=== PATIENT | female | born 1990 | race Caucasian/White ===

== ENCOUNTER 2016-10-25 08:37 | Inpatient (IN) | payer OTHER ==
[2016-10-25] MEDS ORDERED: PENICILLIN G POTASSIUM 5,000,000 UNIT in DEXTROSE 5%-WATER 100 ML IV ONE (08:39)
[2016-10-25] MEDS ORDERED: RINGERS SOLUTION,LACTATED 1,000 ML IV ONE (08:39)
[2016-10-25] MEDS ORDERED: PENICILLIN G-K 5 MILLION UNIT VIAL ONE ×2 (09:15→12:53)
[2016-10-25] MEDS: RINGERS SOLUTION,LACTATED 1,000 ML IV PRN ×2 (09:28→19:35)
[2016-10-25 09:29] LABS: APPEARANCE,URINE CLEAR; BILIRUBIN,URINE NEGATIVE (NEGATIVE); GLUCOSE, URINE NEGATIVE (NEGATIVE); KETONES,URINE NEGATIVE (NEGATIVE); LEUKOCYTE ESTERASE,URINE NEGATIVE (NEGATIVE); NITRITE,URINE NEGATIVE (NEGATIVE); PROTEIN,URINE NEGATIVE (NEGATIVE); URINE SPECIFIC GRAVITY 1.008; UROBILINOGEN,URINE NEGATIVE mg/dL (<2.0)
[2016-10-25 09:38] LABS: ABSOLUTE EOSINOPHILS # (AUTO) 0.1 10^3/uL (0.0-0.6); ABSOLUTE LYMPHOCYTES (AUTO) 1.8 10^3/uL (0.5-4.7); ABSOLUTE MONOCYTES (AUTO) 0.7 10^3/uL (0.1-1.4); ABSOLUTE NEUT (AUTO) 6.8 10^3/uL (1.7-8.2); BASOPHILS % (AUTO) 0.5 % (0-2); EOSINOPHILS % (AUTO) 0.5 % (0-6); HEMATOCRIT 32.7 % (36.0-47.0); HEMOGLOBIN 11.4 g/dL (12.0-15.5); HGB HCT DIFFERENCE 1.5; LYMPHOCYTES % (AUTO) 18.9 % (13-45); MEAN CORPUSCULAR HEMOGLOBIN 29.8 pg (27.0-33.4); MEAN CORPUSCULAR HGB CONC 34.8 g/dL (32.0-36.0); MEAN CORPUSCULAR VOLUME 86 fl (80-97); MONOCYTES % (AUTO) 7.6 % (3-13); RED BLOOD COUNT 3.83 10^6/uL (3.72-5.28); RED CELL DISTRIBUTION WIDTH 14.3 % (11.5-14.0); SEGMENTED NEUTROPHILS % (AUTO) 72.5 % (42-78); WHITE BLOOD COUNT 9.4 10^3/uL (4.0-10.5)
[2016-10-25 09:49] LABS: ALANINE AMINOTRANSFERASE 23 U/L (9-52); ALBUMIN 3.5 g/dL (3.5-5.0); ALKALINE PHOSPHATASE 161 U/L (38-126); ANION GAP 7 (5-19); ASPARTATE AMINO TRANSFERASE 17 U/L (14-36); BILIRUBIN,TOTAL 0.5 mg/dL (0.2-1.3); BLOOD UREA NITROGEN 9 mg/dL (7-20); CARBON DIOXIDE 22 mmol/L (22-30); CHLORIDE 105 mmol/L (98-107); CREATININE RESULT 0.51 mg/dL (0.52-1.25); GLUCOSE 76 mg/dL (75-110); LDH 449 U/L (313-618); SODIUM 134.3 mmol/L (137-145); TOTAL PROTEIN 5.8 g/dL (6.3-8.2)
[2016-10-25 09:57] LABS: URINE BARBITURATES SCREEN NEGATIVE; URINE METHADONE SCREEN NEGATIVE; URINE OPIATES LOW NEGATIVE; URINE PHENCYCLIDINE SCREEN NEGATIVE
--- NOTE | 2016-10-25 10:01 | L&D Flow Sheet ---
LD Flowsheet Datetime Report Generated by CPN: 10/25/2016 10:00 Datetime: 10/25/2016 09:55 Vital Signs NBP Sys/Candy/Mean (mmHg): 114 (QS system process) : 70 (QS system process) : 87 (QS system process) Pulse: 61 (QS system process) Datetime: 10/25/2016 09:41 Vital Signs NBP Sys/Candy/Mean (mmHg): 115 (QS system process) : 75 (QS system process) : 91 (QS system process) Pulse: 60 (QS system process) Datetime: 10/25/2016 09:25 Procedures: Labs Drawn (Ny Gonzalez, RN) Datetime: 10/25/2016 09:21 Vital Signs NBP Sys/Candy/Mean (mmHg): 118 (QS system process) : 83 (QS system process) : 94 (QS system process) Pulse: 68 (QS system process) Datetime: 10/25/2016 09:20 Medications Antibiotics: Penicillin IV (Units) @ 5million (Ny Gonzalez, RN) Datetime: 10/25/2016 09:04 Uterine Activity Frequency (min): irreg (Ny Gonzalez, RN) Pain Pain Scale: 0 (Ny Gonzalez, RN) Pain Presence: None/Denies (Nybennett Gonzalez, RN) Pain Type: N/A (Ny Gonzalez, RN) Vaginal Exam Vaginal Bleeding: None (Ny Gonzalez, RN) Maternal Assessment Level of Consciousness: Fully Conscious (Ny Gonzalez, RN) DTR's/Clonus: DTRs 2+; No Clonus (Ny Gonzalez, RN) Headache: Denies (Ny Gonzalez, RN) Breath Sounds, Left: Clear and Equal (Ny Gonzalez, RN) Breath Sounds, Right: Clear and Equal (Ny Gonzalez, RN) Nausea/Vomiting: Denies (Ny Gonzalez, RN) RUQ Epigastric Pain: Denies (Ny Gonzalez, RN) Teaching Instructional Method: Verbal; Patient Instructed; Family/Support Person Instructed; Verbalized Understanding (Ny Gonzalez RN) Plan of Care: Plan of Care Discussed; Vaginal Delivery; Induction (Ny Gonzalez RN) Unit Routine: [place] to Room; Call [place]; Bed; Consents Signed; Handwashing; Monitoring; Bathroom Privileges (Ny Gonzalez RN) Datetime: 10/25/2016 09:02 Patient Care IV/Blood Work: IV Started; IV Bolus Started (Ny Gonzalez RN)
--- NOTE | 2016-10-25 12:01 | L&D Flow Sheet ---
LD Flowsheet Datetime Report Generated by CPN: 10/25/2016 12:00 Datetime: 10/25/2016 10:21 Monitor Mode: External (Ny Gonzalez RN) Frequency (min): 3-5 (Ny Gonzalez RN) Quality: Mild/Moderate (Ny Gonzalez RN) Duration (sec): 50-80 (Ny Gonzalez RN) Resting Tone (Palpate): Relaxed (Ny Gonzalez RN) Monitor Mode: External US (Ny Gonzalez RN) FHR Baseline Rate : 145 (Ny Gonzalez RN) Variability: Moderate 6-25 bpm (Ny Gonzalez RN) Accelerations: 15X15 (Ny Gonzalez RN) Decelerations: None (Ny Gonzalez RN) Communication Comments: Monitors removed. IV saline locked for pt to walk around per A. Emmel CNM (Ny Gonzalez RN) Datetime: 10/25/2016 10:10 NBP Sys/Candy/Mean (mmHg): 119 (QS system process) : 76 (QS system process) : 95 (QS system process) Pulse: 63 (QS system process) Datetime: 10/25/2016 10:00 Monitor Mode: External (Ny Gonzalez RN) Frequency (min): 3-5 (Ny Gonzalez RN) Quality: Mild/Moderate (Ny Gonzalez RN) Duration (sec): 50-80 (Ny Gonzalez RN) Resting Tone (Palpate): Relaxed (Ny Gonzalez RN) Monitor Mode: External US (Ny Gonzalez RN) FHR Baseline Rate : 145 (Ny Gonzalez RN) Variability: Moderate 6-25 bpm (Ny Gonzalez RN) Accelerations: 15X15 (Ny Gonzalez RN) Decelerations: None (Ny Gonzalez RN)
[2016-10-25] MEDS ORDERED: PENICILLIN G POTASSIUM 2,500,000 UNIT in DEXTROSE 5%-WATER 50 ML IV SCH (12:40)
--- NOTE | 2016-10-25 14:01 | L&D Flow Sheet ---
LD Flowsheet Datetime Report Generated by CPN: 10/25/2016 14:00 Datetime: 10/25/2016 13:59 NBP Sys/Candy/Mean (mmHg): 117 (QS system process) : 66 (QS system process) : 87 (QS system process) Pulse: 64 (QS system process) Datetime: 10/25/2016 13:44 NBP Sys/Candy/Mean (mmHg): 114 (QS system process) : 63 (QS system process) : 81 (QS system process) Pulse: 64 (QS system process) Datetime: 10/25/2016 13:29 NBP Sys/Candy/Mean (mmHg): 118 (QS system process) : 74 (QS system process) : 92 (QS system process) Pulse: 61 (QS system process) Datetime: 10/25/2016 13:14 NBP Sys/Candy/Mean (mmHg): 119 (QS system process) : 70 (QS system process) : 89 (QS system process) Pulse: 60 (QS system process) Datetime: 10/25/2016 13:10 Antibiotics: Penicillin IV (Units) @ 2.5 million (Ny Gonzalez RN) Datetime: 10/25/2016 12:59 Dilatation (cm): 5.0 (Ny Gonzalez RN) Effacement (%): 80 (Ny Gonzalez RN) Station: -1 (Ny Gonzalez RN) Exam by: Aleshia Guerrero CNM (Ny Gonzalez, RN) Membrane Status: Ruptured (Ny Gonzalez RN) Membranes Rupture Method: Artificial (Ny Gonzalez, RN) Amniotic Fluid Color: Clear (Ny Gonzalez, RN) Amniotic Fluid Amount: None (Ny Gonzalez, RN) Amniotic Fluid Odor: Normal (Ny Gonzalez, RN) Communication Comments: Aleshia Guerrero CNM at bedside (Ny Gonzalez, RN)
[2016-10-25] MEDS ORDERED: OXYTOCIN/NORMAL SALINE 20 UNIT/1,000 ML RTUINJ ONE (15:06)
[2016-10-25] MEDS ORDERED: MISOPROSTOL 0.2 MG TABLET ONE (15:06)
[2016-10-25] MEDS ORDERED: LIDOCAINE 1% INJ-PF (10 MG/ML) 30 ML SDV ONE (15:06)
--- NOTE | 2016-10-25 16:01 | L&D Flow Sheet ---
LD Flowsheet Datetime Report Generated by CPN: 10/25/2016 16:00 Datetime: 10/25/2016 15:59 NBP Sys/Candy/Mean (mmHg): 114 (QS system process) : 52 (QS system process) : 73 (QS system process) Pulse: 60 (QS system process) Datetime: 10/25/2016 15:46 NBP Sys/Candy/Mean (mmHg): 130 (QS system process) : 87 (QS system process) : 102 (QS system process) Pulse: 80 (QS system process) Datetime: 10/25/2016 15:13 Dilatation (cm): 10.0 (Ny Gonzalez RN) Effacement (%): 100 (Ny Gonzalez RN) Station: 1 (Ny Gonzalez RN) Exam by: A. Emmel CNM (Ny Gonzalez RN) Datetime: 10/25/2016 15:08 I/O Interventions: Up to BR (Ny Gonzalez, RN) Datetime: 10/25/2016 15:06 Communication Comments: A. Emmel CNM at bedside (Ny Gonzalez, RN) Datetime: 10/25/2016 15:00 NBP Sys/Candy/Mean (mmHg): 118 (QS system process) : 66 (QS system process) : 86 (QS system process) Pulse: 69 (QS system process) Datetime: 10/25/2016 14:45 NBP Sys/Candy/Mean (mmHg): 122 (QS system process) : 62 (QS system process) : 86 (QS system process) Pulse: 65 (QS system process) Datetime: 10/25/2016 14:30 Monitor Mode: External (Ny Gonzalez, RN) Frequency (min): 3-7 (Ny Gonzalez, RN) Quality: Mild/Moderate (Nybennett Gonzalez, RN) Duration (sec): 50-80 (Nybennett Gonzalez, RN) Duration Criteria: Less than Two 120 Second Contractions (Ny Gonzalez, RN) Pattern: Normal: <= 5 Contractions in 10 Minutes (Nybennett Gonzalez, RN) Resting Tone (Palpate): Relaxed (Nybennett Gonzalez, RN) Monitor Mode: External US (Ny Gonzalez, RN) FHR Baseline Rate : 135 (Nybennett Gonzalez, RN) Variability: Moderate 6-25 bpm (Nybennett Gonzalez, RN) Accelerations: 15X15 (Nybennett Gonzalez, RN) Decelerations: None (Nybennett Gonzalez, RN) Datetime: 10/25/2016 14:29 NBP Sys/Candy/Mean (mmHg): 115 (QS system process) : 65 (QS system process) : 84 (QS system process) Pulse: 66 (QS system process) Datetime: 10/25/2016 14:14 NBP Sys/Candy/Mean (mmHg): 113 (QS system process) : 64 (QS system process) : 83 (QS system process) Pulse: 60 (QS system process) Datetime: 10/25/2016 14:10 Monitor Interventions for UA: [address] Adjusted (Ny Gonzalez RN) Datetime: 10/25/2016 14:00 Monitor Mode: External (Ny Gonzalez RN) Frequency (min): 3-5 (Ny Gonzalez RN) Quality: Mild/Moderate (Ny Gonzalez RN) Duration (sec): 50-80 (Ny Gonzalez RN) Resting Tone (Palpate): Relaxed (Ny Gonzalez RN) Monitor Mode: External US (Ny Gonzalez RN) FHR Baseline Rate : 135 (Ny Gonzalez RN) Variability: Moderate 6-25 bpm (Ny Gonzalez RN) Accelerations: 15X15 (Ny Gonzalez RN) Decelerations: None (Ny Gonzalez RN)
--- NOTE | 2016-10-25 17:04 | Admission Physical ---
Datetime Report Generated by CPN: 10/25/2016 17:04 CURRENT ADMISSION Chief Complaint: Signs/Symptoms Gestational HTN Admit Plan: Admit to Unit; Initiate Labor Induction Protocol ALLERGIES Medication Allergies: No Medication Allergies: No Known Allergies (10/25/2016) Latex: No Latex Allergies OBSTETRICAL HISTORY EDC: 10/20/2016 00:00 : 2 Para: 1 Gestational Diabetes: Yes Rh Sensitization: No Incompetent Cervix: No RONNIE: No Infertility: No ART Treatment: No Uterine Anomaly: No IUGR: No Hx Previous C/S: No Macrosomia: No Hx Loss/Stillborn: No PIH: No Hx : No Placenta Previa/Abruption: No Depression/PP Depression: No PTL/PROM: No Post Hemorrhage: No Current Procedures: Ultrasound; NST Obstetrical History Comments: G1: 02/2014, GDM G2: current SEE RECORDS Alcohol: No Marijuana : No Cocaine: No Other Illicit Drugs: No Cigarettes: Never Smoker. [id number] MEDICAL HISTORY Diabetes: Yes Diabetes Type: Gestational Diabetes Blood Transfusion: No Pulmonary Disease (Asthma, TB): No Breast Disease: No Hypertension: No Placement Manager Surgery: No Heart Disease: No Hosp/Surgery: Yes Autoimmune Disorder: No Anesthetic Complications: No Kidney Disease: No Abnormal Pap Smear: No Neuro/Epilepsy: No Psychiatric Disorders: No Other Medical Diseases: No Hepatitis/Liver Disease: No Significant Family History: No Varicosities/Phlebitis: No Trauma/Violence : No Thyroid Dysfunction: No Medical History Comments: GDM with first INFECTIOUS HISTORY Gonorrhea: No Genital Herpes: No Chlamydia: No Tuberculosis: No Syphilis: No Hepatitis: No HIV/AIDS Exposure: No Rash or Viral Illness: No HPV: No PHYSICAL EXAM General: Normal HEENT: Normal Neurologic: Normal Thyroid: Normal Heart: Normal Lungs: Normal Breast: Normal Back: Normal Abdomen: Normal Genitourinary Exam: Normal Extremities: Normal DTRs: Normal Pelvic Type: Adequate Vital Signs: Reviewed MEMBRANES Membranes: Intact FETUS A EGA: 40.5 Monitoring: External US Decelerations: None Admit Comment: 26 yo admitted for gestational hypertension EGA 40.5 EDC 10/20/ history unremarkable GBS positive abdomen nontender denies visual symptoms gbs prophylaxis irregular contractions plan to rupture at 1300 anticipate anticipate FHTs PLANS FOR LABOR AND DELIVERY Labor and Delivery: None Pain Management: None Feeding Preference: Breast Benefit of Breast Feed Discussed: Yes Circumcision: N/A INFORMED CONSENT Assignment: Irene Anthony MD Signature: with User ID: Jose : with User ID: [email or web address]
[2016-10-25] MEDS ORDERED: BENZOCAINE/MENTHOL AEROSOL SPRAY 56 ML TOP PRN (17:11)
[2016-10-25] MEDS ORDERED: DIBUCAINE 1% OINTMENT 28 GM TP PRN (17:11)
[2016-10-25] MEDS ORDERED: MEASLES,MUMPS&RUBELLA VACC/PF 0.5 ML VIAL SUBCUT PRN (17:11)
[2016-10-25] MEDS ORDERED: DIPH/PERTUSS(ACELL)/TETANUS VAC/PF 0.5 ML SYR (>=10YO) IM PRN (17:11)
[2016-10-25] MEDS ORDERED: OXYTOCIN/NORMAL SALINE 1,000 ML IV PRN (17:11)
[2016-10-25] MEDS ORDERED: ZOLPIDEM TARTRATE 5 MG TABLET PO PRN (17:11)
[2016-10-25] MEDS ORDERED: ACETAMINOPHEN WITH CODEINE #3 TABLET PO PRN (17:11)
--- NOTE | 2016-10-25 17:17 | Delivery Summary ---
Del Sum A-C Datetime Report Generated by CPN: 10/25/2016 17:17 ADMISSION DATA Chief Complaint: Signs/Symptoms Gestational HTN Admission Impression: Term, Intrauterine Admit Provider Comments: 26 yo admitted for gestational hypertension EGA 40.5 EDC 10/20/16 history unremarkable GBS positive abdomen nontender denies visual symptoms gbs prophylaxis irregular contractions plan to rupture at 1300 anticipate anticipate FHTs DELIVERY PERSONNEL Delivery Doctor:: Meenakshi Guerrero CNM Nurse Tower Foreman Certified:: Meenakshi Guerrero CNM Labor and Delivery Nurse:: Ny Gonzalez RN MATERNAL INFORMATION Delivery Anesthesia: None Medications After Delivery: Pitocin Bolus-Please Comment; Pitocin Drip 20 Units/1000ml NSS Estimated Blood Loss (ml): 300 Maternal Complications: None Provider Comments: delivery of viable female WILLIS apgars 9/9 bulb suctioned on perineum infant to abdomen tactile stimulation elicits spont cry cord clamped and cut by FOB placenta intact- blake large clots expelled fundus firming with massage [id number] mod lochia 2nd degree vaginal laceration repaired under 1% lidocaine EBL 300 cc bonding well with hemostasis achieved LABOR SUMMARY EDC: 10/20/2016 00:00 No. Babies in Womb: 1 Attempted: No Labor Anesthesia: None LABOR INFORMATION Reason for Induction: Gestational Hypertension Onset of Labor: 10/25/2016 12:00 Complete Dilatation: 10/25/2016 15:13 Oxytocin: N/A Group B Beta Strep: positive Antibiotics # of Doses: 2 Antibiotics Time of Last Dose: 1310 Name of Antibiotic Given: PCN Steroids Given: None Reason Steroids Not Administered: Not Applicable MEMBRANES Membranes Rupture Method: Artificial Rupture of Membranes: 10/25/2016 12:59 Length of Rupture (hr): 2.42 Amniotic Fluid Color: Clear Amniotic Fluid Amount: None Amniotic Fluid Odor: Normal STAGES OF LABOR Stage 1 hr: 3 Stage 1 min: 13 Stage 2 hr: 0 Stage 2 min: 11 Stage 3 hr: 0 Stage 3 min: 8 Total Time in Labor hr: 3 Total Time in Labor min: 32 VAGINAL DELIVERY Episiotomy: None Laceration Extension: Second Degree Laceration Type: Vaginal Laceration Repair: Yes Laceration Repair Note: 2nd degree vaginal laceration repaired under 1%lidocaine pt tolerated well 2.0 chromic gut CSECTION DELIVERY Primary Indication: N/A Secondary Indication: N/A CSection Incidence: N/A Labor: N/A Elective: N/A CSection Incision: N/A BABY A INFORMATION Infant Delivery Date/Time: 10/25/2016 15:24 Method of Delivery: Vaginal Born in Route : No : N/A Forceps: N/A Vacuum Extraction: N/A Shoulder Dystocia : No PRESENTATION/POSITION BABY A Presentation: Cephalic Cephalic Presentation: Vertex Vertex Position: Right Occipital Anterior Breech Presentation: N/A PLACENTA INFORMATION BABY A Placenta Delivery Time : 10/25/2016 15:32 Placenta Method of Delivery: Spontaneous Placenta Status: Delivered SCORES BABY A Heart Rate 1 min: >100 bpm Resp Effort 1 min: Good Cry Reflex Irritability 1 min: Cough or Sneeze or Pulls Away Muscle Tone 1 min: Active Motion Color 1 min: Body [place], Extremities Blue Resuscitation Effort 1 min: Tactile Stimulation SCORE 1 MIN: 9 Heart Rate 5 min: >100 bpm Resp Effort 5 min: Good Cry Reflex Irritability 5 min: Cough or Sneeze or Pulls Away Muscle Tone 5 min: Active Motion Color 5 min: Body [place], Extremities Blue Resuscitation Effort 5 min: N/A SCORE 5 MIN: 9 INFANT INFORMATION BABY A Gestational Age at Delivery: 40.5 Gestational Status: Full Term- 39- 40.6 Weeks Infant Outcome : Liveborn Infant Condition : Stable Infant Sex: Female WEIGHT/LENGTH BABY A Infant Birthweight (gm): 3715 Infant Weight (lb): 8 Infant Weight (oz): 3 Length (in): 21.00 Infant Length (cm): 53.34 CORD INFORMATION BABY A No. Cord Vessels: 3 Nuchal Cord : N/A Cord Blood Taken: Yes-For Storage (Mom's Blood type +) Infant Suction: None ASSESSMENT BABY A Complications: None Physical Findings at Delivery: Within Normal Limits Respirations: Appears Normal Skin to Skin: Yes Mixed Livestock Farmer/ALS Called : No Infant Care By: A. Gonzalez RN Transferred To: Remains with Mother BABY B INFORMATION : N/A SIGNATURES Assignment: Irene Anthony MD Signature: with User ID: [email or web address] : with User ID: [email or web address]
--- NOTE | 2016-10-25 19:01 | L&D Flow Sheet ---
LD Flowsheet Datetime Report Generated by CPN: 10/25/2016 19:00 Datetime: 10/25/2016 16:50 Vital Signs Stage of : Recovery (Ny Gonzalez, RN) Datetime: 10/25/2016 16:44 Vital Signs Stage of : Recovery (Nybennett Gonzalez, RN) NBP Sys/Candy/Mean (mmHg): 105 (QS system process) : 66 (QS system process) : 81 (QS system process) Pulse: 70 (QS system process) Pain Pain Scale: 0 (Nybennett Gonzalez, RN) Pain Presence: None/Denies (Nybennett Gonzalez, RN) Pain Type: N/A (Nybennett Gonzalez, RN) Datetime: 10/25/2016 16:29 Vital Signs Stage of : Recovery (Ny Gonzalez, RN) NBP Sys/Candy/Mean (mmHg): 137 (QS system process) : 60 (QS system process) : 87 (QS system process) Pulse: 67 (QS system process) Pain Pain Scale: 0 (Ny Gonzalez, RN) Pain Presence: None/Denies (Ny Gonzalez, RN) Pain Type: N/A (Ny Gonzalez, RN) Datetime: 10/25/2016 16:14 Vital Signs Stage of : Recovery (Ny Gonzalez, RN) NBP Sys/Candy/Mean (mmHg): 101 (QS system process) : 61 (QS system process) : 75 (QS system process) Pulse: 65 (QS system process) Pain Pain Scale: 0 (Ny Gonzalez, RN) Pain Presence: None/Denies (Ny Gonzalez, RN) Pain Type: N/A (Ny Gonzalez, RN) Datetime: 10/25/2016 15:59 Vital Signs Stage of : Recovery (Ny Gonzalez, RN) NBP Sys/Candy/Mean (mmHg): 114 (QS system process) : 52 (QS system process) : 73 (QS system process) Pulse: 60 (QS system process) Pain Pain Scale: 0 (Ny Gonzalez, RN) Pain Presence: None/Denies (Ny Gonzalez, RN) Pain Type: N/A (Ny Gonzalez, RN) Datetime: 10/25/2016 15:46 Vital Signs Stage of : Recovery (Ny Gonzalez, RN) NBP Sys/Candy/Mean (mmHg): 130 (QS system process) : 87 (QS system process) : 102 (QS system process) Pulse: 80 (QS system process) Pain Pain Scale: 0 (Ny Gonzalez, RN) Pain Presence: None/Denies (Ny Gonzalez, RN) Pain Type: N/A (Ny Gonzalez, RN) Datetime: 10/25/2016 15:25 Vital Signs Stage of : Recovery (Nybennett Gonzalez, RN) Datetime: 10/25/2016 15:15 Uterine Activity Monitor Mode: External; Palpation (Ny Gonzalez RN) Frequency (min): 1-2 (Ny Gonzalez RN) Quality: Moderate (Ny Gonzalez RN) Duration (sec): 50-80 (Ny Gonzalez, RN) Duration Criteria: Less than Two 120 Second Contractions (Ny Gonzalez, RN) Pattern: Normal: <= 5 Contractions in 10 Minutes (Ny Gonzalez, RN) Resting Tone (Palpate): Relaxed (Ny Gonzalez, RN) Assessment A Monitor Mode: External US (Ny Gonzalez, RN) FHR Baseline Rate : 125 (Ny Gonzalez, RN) Variability: Moderate 6-25 bpm (Ny Gonzalez, RN) Accelerations: 15X15 (Ny Gonzalez, RN) Decelerations: None (Ny Gonzalez, RN) Datetime: 10/25/2016 15:14 Stage 2 Pushing: Coached on Pushing; Urge to Push (Ny Gonzalez, RN) Pushing Position: Pushing with Contractions (Ny Gonzalez, RN) Pushing Progress: Descent with Pushing (Ny Gonzalez, RN) Preparation for Delivery: Setup for Delivery (Ny Gonzalez, RN) Datetime: 10/25/2016 15:13 Vaginal Exam Dilatation (cm): 10.0 (Ny Gonzalez, RN) Effacement (%): 100 (Ny Gonzalez, RN) Station: 1 (Ny Gonzalez, RN) Exam by: A. Emmel CNM (Ny Gonzalez, RN) Datetime: 10/25/2016 15:08 I/O Interventions: Up to BR (Ny Gonzalez, RN) Datetime: 10/25/2016 15:06 Communication Communication Comments: A. Emmel CNM at bedside (Ny Gonzalez, RN) Datetime: 10/25/2016 15:00 NBP Sys/Candy/Mean (mmHg): 118 (QS system process) : 66 (QS system process) : 86 (QS system process) Pulse: 69 (QS system process) Uterine Activity Monitor Mode: External (Ny Gonzalez, RN) Frequency (min): 1-3 (Ny Gonzalez, RN) Quality: Moderate (Ny Gonzalez, RN) Duration (sec): 50-80 (Ny Gonzalez, RN) Duration Criteria: Less than Two 120 Second Contractions (Ny Gonzalez, RN) Pattern: Normal: <= 5 Contractions in 10 Minutes (Ny Gonzalez, RN) Resting Tone (Palpate): Relaxed (Ny Gonzalez, RN) Assessment A Monitor Mode: External US (Ny Carlos, RN) FHR Baseline Rate : 125 (Ny Gonzalez, RN) Variability: Moderate 6-25 bpm (Ny Gonzalez, RN) Accelerations: 15X15 (Ny Gonzalez, RN) Decelerations: None (Ny Gonzalez, RN) Datetime: 10/25/2016 14:45 NBP Sys/Candy/Mean (mmHg): 122 (QS system process) : 62 (QS system process) : 86 (QS system process) Pulse: 65 (QS system process) Datetime: 10/25/2016 14:30 Uterine Activity Monitor Mode: External (Ny Gonzalez RN) Frequency (min): 3-7 (Ny Gonzalez RN) Quality: Mild/Moderate (Ny Gonzalez RN) Duration (sec): 50-80 (Ny Gonzalez RN) Duration Criteria: Less than Two 120 Second Contractions (Ny Gonzalez, RN) Pattern: Normal: <= 5 Contractions in 10 Minutes (Ny Gonzalez, RN) Resting Tone (Palpate): Relaxed (Ny Gonzalez, RN) Assessment A Monitor Mode: External US (Ny Gonzalez, RN) FHR Baseline Rate : 135 (Ny Gonzalez, RN) Variability: Moderate 6-25 bpm (Ny Gonzalez, RN) Accelerations: 15X15 (Ny Gonzalez, RN) Decelerations: None (Ny Gonzalez, RN) Datetime: 10/25/2016 14:29 NBP Sys/Candy/Mean (mmHg): 115 (QS system process) : 65 (QS system process) : 84 (QS system process) Pulse: 66 (QS system process) Datetime: 10/25/2016 14:14 NBP Sys/Candy/Mean (mmHg): 113 (QS system process) : 64 (QS system process) : 83 (QS system process) Pulse: 60 (QS system process) Datetime: 10/25/2016 14:10 Monitor Interventions for UA: [place] Adjusted (Ny Gonzalez, RN) Datetime: 10/25/2016 14:00 Uterine Activity Monitor Mode: External (Yn Gonzalez, RN) Frequency (min): 3-5 (Ny Gonzalez, RN) Quality: Mild/Moderate (Ny Gonzalez, RN) Duration (sec): 50-80 (Ny Gonzalez, RN) Resting Tone (Palpate): Relaxed (Ny Gonzalez, RN) Assessment A Monitor Mode: External US (Ny Gonzalez, RN) FHR Baseline Rate : 135 (Ny Gonzalez, RN) Variability: Moderate 6-25 bpm (Ny Gonzalez, RN) Accelerations: 15X15 (Ny Gonzalez, RN) Decelerations: None (Ny Gonzalez, RN) Datetime: 10/25/2016 13:59 NBP Sys/Candy/Mean (mmHg): 117 (QS system process) : 66 (QS system process) : 87 (QS system process) Pulse: 64 (QS system process) Datetime: 10/25/2016 13:51 Monitor Interventions for UA: [place] Adjusted (Ny Gonzalez, RN) Datetime: 10/25/2016 13:44 NBP Sys/Candy/Mean (mmHg): 114 (QS system process) : 63 (QS system process) : 81 (QS system process) Pulse: 64 (QS system process) Datetime: 10/25/2016 13:39 Patient Position/Activity: Birthing Ball (Ny Gonzalez, RN) Datetime: 10/25/2016 13:30 Uterine Activity Monitor Mode: External (Ny Gonzalez, RN) Frequency (min): 3-5 (Ny Gonzalez, RN) Quality: Mild/Moderate (Ny Gonzalez, RN) Duration (sec): 50-80 (Ny Carlos, RN) Resting Tone (Palpate): Relaxed (Ny Carlos, RN) Assessment A Monitor Mode: External US (Ny Carlos, RN) FHR Baseline Rate : 135 (Ny Carlos, RN) Variability: Moderate 6-25 bpm (Ny Carlos, RN) Accelerations: 15X15 (Ny Carlos, RN) Decelerations: Early (Ny Gonzalez, RN) Datetime: 10/25/2016 13:29 NBP Sys/Candy/Mean (mmHg): 118 (QS system process) : 74 (QS system process) : 92 (QS system process) Pulse: 61 (QS system process) Datetime: 10/25/2016 13:14 NBP Sys/Candy/Mean (mmHg): 119 (QS system process) : 70 (QS system process) : 89 (QS system process) Pulse: 60 (QS system process) Datetime: 10/25/2016 13:10 Medications Antibiotics: Penicillin IV (Units) @ 2.5 million (Ny Gonzalez RN) Datetime: 10/25/2016 12:59 Vaginal Exam Dilatation (cm): 5.0 (Ny Gonzalez RN) Effacement (%): 80 (Ny Gonzalez RN) Station: -1 (Ny Gonzalez RN) Exam by: Aleshia Guerrero CNMelo (Ny Gonzalez RN) Membrane Status: Ruptured (Ny Gonzalez RN) Membranes Rupture Method: Artificial (Ny Gonzalez RN) Amniotic Fluid Color: Clear (Ny Gonzalez RN) Amniotic Fluid Amount: None (Ny Gonzalez RN) Amniotic Fluid Odor: Normal (Ny Gonzalez RN) Communication Communication Comments: A. Emmel CNM at bedside (Ny Gonzalez RN) Datetime: 10/25/2016 12:25 Uterine Activity Monitor Mode: External (Ny Gonzalez RN) Frequency (min): 2-5 (Ny Gonzalez RN) Quality: Mild (Ny Gonzalez, RN) Duration (sec): 50-80 (Ny Gonzalez, RN) Resting Tone (Palpate): Relaxed (Ny Gonzalez, RN) Assessment A Monitor Mode: External US (Ny Gonzalez, RN) FHR Baseline Rate : 135 (Ny Gonzalez, RN) Variability: Moderate 6-25 bpm (Ny Gonzalez, RN) Accelerations: 15X15 (Ny Gonzalez, RN) Decelerations: None (Ny Gonzalez, RN) Datetime: 10/25/2016 12:00 Uterine Activity Monitor Mode: External (Ny Gonzalez, RN) Frequency (min): 2-5 (Ny Gonzalez, RN) Quality: Mild (Ny Gonzalez, RN) Duration (sec): 50-80 (Ny Gonzalez, RN) Resting Tone (Palpate): Relaxed (Ny Gonzalez, RN) Assessment A Monitor Mode: External US (Ny Gonzalez, RN) FHR Baseline Rate : 135 (Ny Gonzalez, RN) Variability: Moderate 6-25 bpm (Ny Gonzalez, RN) Accelerations: 15X15 (Ny Gonzalez, RN) Decelerations: None (Ny Gonzalez, RN) Datetime: 10/25/2016 10:21 Uterine Activity Monitor Mode: External (Ny Gonzalez, RN) Frequency (min): 3-5 (Ny Gonzalez, RN) Quality: Mild/Moderate (Ny Gonzalez, RN) Duration (sec): 50-80 (Ny Gonzalez, RN) Resting Tone (Palpate): Relaxed (Ny Gonzalez, RN) Assessment A Monitor Mode: External US (Ny Gonzalez, RN) FHR Baseline Rate : 145 (Ny Gonzalez, RN) Variability: Moderate 6-25 bpm (Ny Gonzalez, RN) Accelerations: 15X15 (Ny Gonzalez, RN) Decelerations: None (Ny Gonzalez, RN) Communication Communication Comments: Monitors removed. IV saline locked for pt to walk around per A. Emmel CNM (Ny Gonzalez, RN) Datetime: 10/25/2016 10:10 NBP Sys/Candy/Mean (mmHg): 119 (QS system process) : 76 (QS system process) : 95 (QS system process) Pulse: 63 (QS system process) Datetime: 10/25/2016 10:00 Uterine Activity Monitor Mode: External (Ny Gonzalez RN) Frequency (min): 3-5 (Ny Gonzalez RN) Quality: Mild/Moderate (Ny Gonzalez RN) Duration (sec): 50-80 (Ny Gonzalez RN) Resting Tone (Palpate): Relaxed (Ny Gonzalez RN) Assessment A Monitor Mode: External US (Ny Gonzalez, RN) FHR Baseline Rate : 145 (Ny Gonzalez, RN) Variability: Moderate 6-25 bpm (Ny Gonzalez, RN) Accelerations: 15X15 (Ny Gonzalez, RN) Decelerations: None (Ny Gonzalez, RN) Datetime: 10/25/2016 09:55 NBP Sys/Candy/Mean (mmHg): 114 (QS system process) : 70 (QS system process) : 87 (QS system process) Pulse: 61 (QS system process) Datetime: 10/25/2016 09:41 NBP Sys/Candy/Mean (mmHg): 115 (QS system process) : 75 (QS system process) : 91 (QS system process) Pulse: 60 (QS system process) Datetime: 10/25/2016 09:30 Uterine Activity Monitor Mode: External; Palpation (Ny Gonzalez RN) Frequency (min): 2-5 (Ny Gonzalez RN) Quality: Mild/Moderate (Ny Gonzalez RN) Duration (sec): 50-70 (Ny Gonzalez RN) Duration Criteria: Less than Two 120 Second Contractions (Ny Gonzalez RN) Pattern: Normal: <= 5 Contractions in 10 Minutes (Ny Gonzalez RN) Resting Tone (Palpate): Relaxed (Ny Gonzalez RN) Assessment A Monitor Mode: External US (Ny Gonzalez, RN) FHR Baseline Rate : 145 (yN Gonzalez, RN) Variability: Moderate 6-25 bpm (Ny Gonzalez, RN) Accelerations: 10X10 (Ny Gonzalez, RN) Decelerations: None (Ny Gonzalez, RN) Datetime: 10/25/2016 09:25 Procedures: Labs Drawn (Ny Gonzalez, RN) Datetime: 10/25/2016 09:21 NBP Sys/Candy/Mean (mmHg): 118 (QS system process) : 83 (QS system process) : 94 (QS system process) Pulse: 68 (QS system process) Respirations: 14 (Ny Gonzalez RN) Temperature (F): 98.5 (Ny Gonzalez, RN) Temperature (C): 36.9 (QS system process) Datetime: 10/25/2016 09:20 Medications Antibiotics: Penicillin IV (Units) @ 5million (Ny Gonzalez, RN) Datetime: 10/25/2016 09:04 Frequency (min): irreg (Ny Gonzalez, RN) Pain Pain Scale: 0 (Ny Gonzalez, RN) Pain Presence: None/Denies (Ny Gonzalez, RN) Pain Type: N/A (Ny Gonzalez, RN) Vaginal Bleeding: None (Ny Gonzalez, RN) Maternal Assessment Level of Consciousness: Fully Conscious (Ny Carlos, RN) DTR's/Clonus: DTRs 2+; No Clonus (Ny Carlos, RN) Headache: Denies (Nybennett Gonzalez, RN) Breath Sounds, Left: Clear and Equal (Ny Gonzalez, RN) Breath Sounds, Right: Clear and Equal (Nybennett Gonzalez, RN) Nausea/Vomiting: Denies (Ny Gonzalez, RN) RUQ Epigastric Pain: Denies (Ny Gonzalez, RN) Teaching Instructional Method: Verbal; Patient Instructed; Family/Support Person Instructed; Verbalized Understanding (Ny Gonzalez RN) Plan of Care: Plan of Care Discussed; Vaginal Delivery; Induction (Ny Gonzalez RN) Unit Routine: [place] to Room; Call [place]; Bed; Consents Signed; Handwashing; Monitoring; Bathroom Privileges (Ny Gonzalez RN) Datetime: 10/25/2016 09:02 Patient Care IV/Blood Work: IV Started; IV Bolus Started (Ny Gonzalez RN) Datetime: 10/25/2016 08:57 Patient Position/Activity: Left Lateral (Ny Gonzalez RN) I/O Interventions: Popsicle; Clear Liquids Given (Ny Gonzalez RN)
[2016-10-25] MEDS: ACETAMINOPHEN WITH CODEINE #3 TABLET PO PRN (19:10)
[2016-10-25] MEDS: FERROUS SULFATE 325 MG TABLET PO SCH (19:35)
[2016-10-25] MEDS: DOCUSATE SODIUM 100 MG CAPSULE PO SCH (19:35)
[2016-10-25] MEDS: IBUPROFEN 800 MG TABLET PO SCH (21:28)
[2016-10-26] MEDS: IBUPROFEN 800 MG TABLET PO SCH ×3 (05:46→21:03)
[2016-10-26] MEDS: ACETAMINOPHEN WITH CODEINE #3 TABLET PO PRN ×2 (05:46→18:30)
--- NOTE | 2016-10-26 06:02 | L&D Current Admission ---
Current Admit Datetime Report Generated by CPN: 10/26/2016 06:00 ADMISSION INFORMATION Current Admit Date/Time: 10/25/2016 09:01 (10/25/2016 09:01:Ny Gonzalez RN) Reason for Admission: Induction of Labor (10/25/2016 09:01:Ny Gonzalez RN) Chief Complaint: Scheduled Induction of Labor (10/25/2016 09:04:Ny Gonzalez RN) Medications During : Vitamin; Hydroxyzine (Vistaril) (10/25/2016 09:01:Ny Gonzalez RN) EGA per Dates: 40.5 (10/25/2016 09:01:QS system process) Method of Arrival: Ambulatory (10/25/2016 09:01:yN Gonzalez RN) Admitted From: Office (10/25/2016 09:01:Ny Gonzalez RN) Reason for Induction: Postterm; Gestational Hypertension (10/25/2016 09:01:Ny Gonzalez RN) Records Available: Yes (10/25/2016 09:01:Ny Gonzalez RN) General Admission Information: Reviewed (10/25/2016 09:01:Ny Gonzalez RN) General Admission Reviewed By: Aleshia Gonzalez RN (10/25/2016 09:01:Ny Gonzalez RN) BELONGINGS/ADVANCED DIRECTIVES Valuables/Personal Effects: None (10/25/2016 09:01:Ny Gonzalez RN) Other Belongings: see consents (10/25/2016 09:01:Ny Gonzalez RN) Disposition of Belongings: Sent Home (10/25/2016 09:01:Ny Gonzalez RN) Advance Direct for Healthcare: No, and Wants No Information (10/25/2016 09:01:Ny Gonzalez RN) Durable Power of Manager Programs: No (10/25/2016 09:01:Ny Gonzalez RN) Living Will: No (10/25/2016 09:01:Ny Gonzalez RN) Organ Donor: Yes (10/25/2016 09:01:Ny Gonzalez RN) Pt Rights Information Given: Yes (10/25/2016 09:01:Ny Gonzalez RN) Pt Understands Pt Rights: Yes (10/25/2016 09:01:Ny Gonzalez RN) LEARNING ASSESSMENT Knowledge Level: Understands L_D Process; Understands Care Activities; Had Pre-Hospital Education; Understands Diagnosis (10/25/2016 09:01:Ny Gonzalez RN) Barriers to Learning: None (10/25/2016 09:01:Ny Gonzalez RN) Learning Readiness: Motivated (10/25/2016 09:01:Ny Gonzalez RN) Learns Best By: 1 to 1 Instruction (10/25/2016 09:01:Ny Gonzalez RN) Learning Needs: Labor and Delivery Process (10/25/2016 09:01:Ny Gonzalez RN) DOMESTIC VIOLANCE SCREENING Dom Viol Threatened/Hurt: No (10/25/2016 09:01:Ny Gonzalez RN) Hx of Abuse/Neglect past 2yrs: No (10/25/2016 09:01:Ny Gonzalez RN) Feel Unsafe Going Home: No (10/25/2016 09:01:Ny Gonzalez RN) Addt'l Observ Indicating Abuse: No (10/25/2016 09:01:Ny Gonzalez RN) Reason Unable to Complete Screen: N/A, Screen Completed (10/25/2016 09:01:Ny Gonzalez RN) Considered Personal Harm/Suicide: No (10/25/2016 09:01:Ny Gonzalez RN) NUTRITIONAL/FUNCTIONAL SCREENING Problem with Appetite >5 Days: No (10/25/2016 09:01:Ny Gonzalez RN) Chew/Swallow Difficulties: No (10/25/2016 09:01:Ny Gonzalez RN) Inappropriate Wt Gain/Loss: No (10/25/2016 09:01:Ny Gonzalez RN) Presence Skin Breakdown/Ulcer: No (10/25/2016 09:01:Ny Gonzalez RN) Special Diet: No (10/25/2016 09:01:Ny Gonzalez RN) Pt Requests Salvage Grinder Visit: No (10/25/2016 09:01:Ny Gonzalez RN) Hx of Any of the Following?: N/A (10/25/2016 09:01:Ny Gonzalez RN) New Diagnosis of: N/A (10/25/2016 09:01:Ny Gonzalez RN) Requires Assist w/Ambulation: No (10/25/2016 09:01:Ny Gonzalez RN) Uses Assist Device to Ambulate: No (10/25/2016 09:01:Ny Gonzalez RN) Pt Requires Help w/ADL's: No (10/25/2016 09:01:Ny Gonzalez RN)
--- NOTE | 2016-10-26 06:02 | L&D General Admission ---
General Admit Datetime Report Generated by CPN: 10/26/2016 06:00 INFORMATION Patient Age: 26 (09/29/2016 09:33:QS system process) EDC: 10/20/2016 00:00 (10/21/2016 14:07:Geraldine Mike RN) : 2 (10/21/2016 14:07:Geraldine Mike RN) Para: 1 (10/21/2016 14:07:Geraldine Mike RN) Baby, Number in Womb: 1 (10/21/2016 14:07:Ny Gonzalez RN) CARE Primary Bobbin Drier: [facility] (10/21/2016 14:07:Geraldine Mike RN) Adequate Care: Yes (10/21/2016 14:07:Ny Gonzalez RN) Height (in): 63 (10/25/2016 17:04:QS system process) ALLERGIES Medication Allergy: No (10/21/2016 14:07:Ny Gonzalez RN) Medication Allergies: No Known Allergies (10/25/2016) (10/25/2016 08:50:QS system process) Latex Allergy: No Latex Allergies (10/21/2016 14:07:Ny Gonzalez RN) COMMUNICATION Primary Language: Burmese (10/21/2016 14:07:Ny Gonzalez RN) Medical Tx Preferred Language: Burmese (10/21/2016 14:07:Ny Gonzalez RN) DEMOGRAPHICS Address: [address] [place] [id number] (10/25/2016 08:37:QS system process) Zipcode: [address] (10/25/2016 08:37:QS system process) Home (09/29/2016 09:33:QS system process) SSN: [id number] (09/29/2016 09:33:QS system process) Next of Kin Name: LARRY CHRISTIANSON (09/29/2016 09:33:QS system process) Next of Kin (09/29/2016 09:33:QS system process) Next of Kin Relationship: SPO (09/29/2016 09:33:QS system process) Date of : 1990 (09/29/2016 09:33:QS system process) Marital Status: (09/29/2016 09:33:QS system process) Sex: Female (09/29/2016 09:33:QS system process) Race: (09/29/2016 09:33:QS system process) Ethnicity: Non- or (09/29/2016 09:33:QS system process) Oriental Orthodox: Synagogue (09/29/2016 09:33:QS system process) DRUG AND ALCOHOL USE Alcohol: No (10/21/2016 14:07:Ny Gonzalez RN) Cigarettes: Never Smoker. [id number] (10/21/2016 14:07:Ny Gonzalez RN) Marijuana: No (10/21/2016 14:07:Ny Gonzalez RN) Cocaine: No (10/21/2016 14:07:Ny Gonzalez RN) Other Illicit Drugs: No (10/21/2016 14:07:Ny Gonzalez RN) VACCINE HISTORY Influenza Vaccine: Yes (10/21/2016 14:07:Ny Gonzalez RN) Pneumococcal Vaccine: No (10/21/2016 14:07:Ny Gonzalez RN) Tetanus Vaccine: Yes (10/21/2016 14:07:Ny Gonzalez RN) Tdap Vaccine: Yes (10/21/2016 14:07:Ny Gonzalez RN) Hepatitis B Vaccine: Yes (10/21/2016 14:07:Ny Gonzalez RN) Advertising Director: [facility] (10/21/2016 14:07:Ny Gonazlez RN) Feeding Preference: Breast (10/21/2016 14:07:Ny Gonzalez RN) Benefit of Breast Feed Discussed: Yes (10/21/2016 14:07:Ny Gonzalez RN) Circumcision: N/A (10/21/2016 14:07:Ny Gonzalez RN) Classes Attended: Yes (10/21/2016 14:07:Ny Gonzalez RN) Tubal Ligation: No (10/21/2016 14:07:Ny Gonzalez RN) Tubal Authorization Signed: N/A (10/21/2016 14:07:Ny Gonzalez RN) Consent: N/A (10/21/2016 14:07:Ny Gonzalez RN) Consent Signed: N/A (10/21/2016 14:07:Ny Gonzalez RN) Pain Management Plans: None (10/21/2016 14:07:Ny Gonzalez RN) Plans for Labor and Delivery: None (10/21/2016 14:07:Ny Gonzalez RN) Support Person: Larry Christianson (10/21/2016 14:07:Ny Gonzalez RN) Support Person Relationship: (10/21/2016 14:07:Ny Gonzalez RN) Cultural/Spritual Practice: No (10/21/2016 14:07:Ny Gonzalez RN) Spir/Cult Dietary Needs: No (10/21/2016 14:07:Ny Gonzalez RN) LIVING SITUATION/DISCHARGE PLAN Living Arrangements: House (10/21/2016 14:07:Ny Gonzalez RN) Adequate Access to:: Electric; Heat; Refrigeration; Plumbing/Running water; Phone; Transportation (10/21/2016 14:07:Ny Gonzalez RN) WIC Program: No (10/21/2016 14:07:Ny Gonzalez RN) Discharge Timber Faller Person: Larry (10/21/2016 14:07:Ny Gonzalez RN) Currently Using Commun Resources: No (10/21/2016 14:07:Ny Gonzalez RN) Outside Agency/Desizing Machine Operator Head End: No (10/21/2016 14:07:Ny Gonzalez RN) Car Seat for Discharge: Yes (10/21/2016 14:07:Ny Gonzalez RN) Adoption Requested: No (10/21/2016 14:07:Ny Gonzalez RN) Pt Contact w/ Post : N/A (10/21/2016 14:07:Ny Gonzalez RN) LABS Blood Type: A Positive (10/21/2016 14:07:Geraldine Mike RN) Hemoglobin: 11.4 L (10/25/2016 09:27:QS system process) Hematocrit: 32.7 L (10/25/2016 09:27:QS system process) MCV: 86 (10/25/2016 09:27:QS system process) Group Beta Strep: positive (10/21/2016 14:07:Geraldine Mike RN) Gonorrhea: Negative (10/21/2016 14:07:Geraldine Mike RN) Chlamydia: Negative (10/21/2016 14:07:Geraldine Mike RN) RPR/VDRL: Nonreactive (10/21/2016 14:07:Geraldine Mike RN) HIV Exposure Test: Negative (10/21/2016 14:07:Geraldine Mike RN) Hepatitis B: Negative (10/21/2016 14:07:Geraldine Mike RN) Rubella: Immune (10/21/2016 14:07:Geraldine Mike RN) OB/PREVIOUS HISTORY Previous Procedures: Ultrasound; NST (10/21/2016 14:07:Ny Gonzalez RN) Current Procedures: Ultrasound; NST (10/21/2016 14:07:Ny Gonzalez RN) History of Previous : No (10/21/2016 14:07:Ny Gonzalez RN) History of Gestational Diabetes: Yes (10/21/2016 14:07:Ny Gonzalez RN) History of PIH: No (10/21/2016 14:07:Ny Gonzalez RN) History of Incompetent Cervix: No (10/21/2016 14:07:Ny Gonzalez RN) History of Placenta Previa/Abrup: No (10/21/2016 14:07:Ny Gonzalez RN) History of Macrosomia: No (10/21/2016 14:07:yN Gonzalez RN) History of IUGR: No (10/21/2016 14:07:Ny Gonzalez RN) History of Hemorrhage: No (10/21/2016 14:07:Ny Gonzalez RN) History of Loss/Stillborn: No (10/21/2016 14:07:Ny Gonzalez RN) History of : No (10/21/2016 14:07:Ny Gonzalez RN) History of D (Rh) Sensitization: No (10/21/2016 14:07:Ny Gonzalez RN) History Recurrent Loss/Stillborn: No (10/21/2016 14:07:Ny Gonzalez RN) History Depression/PP Depression: No (10/21/2016 14:07:Ny Gonzalez RN) History of Uterine Anomaly/RONNIE: No (10/21/2016 14:07:Ny Gonzalez RN) History of Infertility: No (10/21/2016 14:07:Ny Gonzalez RN) History of ART Treatment: No (10/21/2016 14:07:Ny Gonzalez RN) History of RONNIE: No (10/21/2016 14:07:Ny Gonzalez RN) Comments Obstetrical History: G1: 02/2014, GDM G2: current (10/21/2016 14:07:Ny Gonzalez RN) MEDICAL HISTORY Med Hx Diabetes: Yes (10/21/2016 14:07:Ny Gonzalez RN) Diabetes Type: Gestational Diabetes (10/21/2016 14:07:yN Gonzalez RN) Med Hx Hypertension: No (10/21/2016 14:07:Ny Gonzalez RN) Med Hx Heart Disease: No (10/21/2016 14:07:Ny Gonzalez RN) Med Hx Autoimmune Disorder: No (10/21/2016 14:07:Ny Gonzalez RN) Med Hx Kidney Disease/UTI: No (10/21/2016 14:07:Ny Gonzalez RN) Med Hx Neurologic/Epilepsy: No (10/21/2016 14:07:Ny Gonzalez RN) Med Hx Psychiatric Disorders: No (10/21/2016 14:07:Ny Gonzalez RN) Med Hx Hepatitis/Liver Disease: No (10/21/2016 14:07:Ny Gonzalez RN) Med Hx Varicosities/Phlebitis: No (10/21/2016 14:07:Ny Gonzalez RN) Med Hx Thyroid Dysfunction: No (10/21/2016 14:07:Ny Gonzalez RN) Med Hx Trauma/Violence: No (10/21/2016 14:07:Ny Gonzalez RN) Med Hx Blood Transfusion: No (10/21/2016 14:07:Ny Gonzalez RN) Med Hx Pulmonary (Asthma,TB): No (10/21/2016 14:07:Ny Gonzalez RN) Med Hx Breast: No (10/21/2016 14:07:Ny Gonzalez RN) Med Hx PLANT ASSIGNER Surgery: No (10/21/2016 14:07:Ny Gonzalez RN) Med Hx Hospitalization/Surgery: Yes (10/21/2016 14:07:Ny Gonzalez RN) Med Hx Anesthetic Complications: No (10/21/2016 14:07:Ny Gonzalez RN) Med Hx Abnormal Pap Smear: No (10/21/2016 14:07:Ny Gonzalez RN) Other Medical Diseases: No (10/21/2016 14:07:Ny Gonzalez RN) Med Hx Significant Family Hx: No (10/21/2016 14:07:Ny Gonzalez RN) Details of Med/Surg Hx: GDM with first (10/21/2016 14:07:Ny Gonzalez RN) INFECTIOUS HISTORY Inf Hx Gonorrhea: No (10/21/2016 14:07:Ny Gonzalez RN) Inf Hx Chlamydia: No (10/21/2016 14:07:Ny Gonzalez RN) Inf Hx Syphilis: No (10/21/2016 14:07:Ny Gonzalez RN) Inf Hx HIV/AIDS: No (10/21/2016 14:07:Ny Gonzalez RN) Inf Hx Human Papilloma Virus: No (10/21/2016 14:07:Ny Gonzalez RN) Inf Hx Pt/Partner Genital Herpes: No (10/21/2016 14:07:yN Gonzalez RN) Inf Hx Tuberculosis/Exposure: No (10/21/2016 14:07:Ny Gonzalez RN) Inf Hx Hepatitis B,C: No (10/21/2016 14:07:Ny Gonzalez RN) Inf Hx Rash or Viral Illness: No (10/21/2016 14:07:Ny Gonzalez RN) GENETIC HISTORY Gen Hx Age >=35 at CANDE: No (10/21/2016 14:07:Ny Gonzalez RN) Gen Hx Thalassemia: No (10/21/2016 14:07:Ny Gonzalez RN) Gen Hx Congenital Heart Defect: No (10/21/2016 14:07:Ny Gonzalez RN) Gen Hx Neural Tube Defect: No (10/21/2016 14:07:Ny Gonzalez RN) Gen Hx Down's Syndrome: No (10/21/2016 14:07:Ny Gonzalez RN) Gen Hx Rich-Sachs: No (10/21/2016 14:07:Ny Gonzalez RN) Gen Hx Nancy: No (10/21/2016 14:07:Ny Gonzalez RN) Gen Hx Familial Dysautonomia: No (10/21/2016 14:07:Ny Gonzalez RN) Gen Hx Sickle Cell Disease/Trait: No (10/21/2016 14:07:Ny Gonzalez RN) Gen Hx Hemophilia/Blood Disorder: No (10/21/2016 14:07:Ny Gonzalez RN) Gen Hx Muscular Dystrophy: No (10/21/2016 14:07:Ny Gonzalez RN) Gen Hx Cystic Fibrosis: No (10/21/2016 14:07:Ny Gonzalez RN) Gen Hx Huntingtons Chorea: No (10/21/2016 14:07:Ny Gonzalez RN) Gen Hx Mental Retardation/Autism: No (10/21/2016 14:07:Ny Gonzalez RN) Gen Hx Tested for Fragile X: No (10/21/2016 14:07:Ny Gonzalez RN) Gen Hx Other Inher/Chromosomal: No (10/21/2016 14:07:Ny Gonzalez RN) Gen Hx Maternal Metabolic DO: No (10/21/2016 14:07:Ny Gonzalez RN) Gen Hx Pt Father or FOB Defect: No (10/21/2016 14:07:Ny Gonzalez RN) Gen Hx Other Genetic History: No (10/21/2016 14:07:Ny Gonzalez RN) Gen Hx Drugs/Meds since LMP: Yes (10/21/2016 14:07:Ny Gonzalez RN) Gen Hx Medications: PNV, Vistiril (10/21/2016 14:07:Ny Gonzalez RN)
--- NOTE | 2016-10-26 06:16 | L&D Care Plan ---
LD CARE PLANS Datetime Report Generated by CPN: 10/26/2016 06:15 Datetime: 10/25/2016 08:40 Pain State: Risk For (Myke Valentin RN) Related To: Labor and Delivery Process; Post (Myke Valentin RN) Goal(s): Patients Pain will be Assessed and Managed; Patient will Verbalize Adequate Relief of Pain or the Ability to Marydel with Current Pain (Myke Valentin RN) Interventions: Assess Pain Severity on Scale of 0 (None) to 5 (Severe); Assess Type, Location and Intensity of Pain Each Time Client Reports Discomfort and Notify Provider if Unusal Pain Develops; Encourage Proper Breathing and Relaxation Techniques; Offer Alternatives Such as Repositioning, Calm Environment, Massages, Diversional Activities, Ice Pack, Splinting, and Ambulation; Administer Analgesics as Ordered; Assist with Epidural Placement as Appropriate; Evaluate Therapeutic Effectiveness of Medication and Treatments (Myke Valentin RN) Outcome: Patient will Report Absence or Relief of Pain Consistent with Established Pain Goal (Myke Valentin RN) Status: Ongoing (Myke Valentin RN) Outcome: Patient will have a Decrease in Signs and Symptoms of Discomfort (Myke Valentin RN) Status: Ongoing (Myke Valentin RN) Outcome: Pain will be Controlled During Procedures (Myke Valentin RN) Status: Ongoing (Myke Valentin RN) Anxiety State: Risk For (Myke Valentin RN) Related To: Labor and Delivery Process; Significant Life Event (Myke Valentin RN) Goal(s): Patient will have Decreased Anxiety and be able to Function at Acceptable Levels (Myke Valentin RN) Interventions: Assess Verbal and Nonverbal Behavioral Indicators of Anxiety; Assist Patient to Identify and Verbalize Symptoms of Anxiety; Identify and Demonstrate Techniques to Control Anxiety; Assist Patient with Coping Mechanisms to Manage Anxiety; Explain to Patient, Using a Calm Reassuring Approach and Nonmedical Terms, All Activities, Procedures, and Concerns; Instruct Patient and Family about Post Discharge Care, Limitations, Symptoms to Report and Resources Available (Myke Valentin RN) Outcome: Patient will Identify, Verbalize and Demonstrate Techniques to Control Anxiety (Myke Valentin RN) Status: Ongoing (Myke Valentin RN) Outcome: Patient's Posture, Facial Expressions, Gestures and Activity Level will Reflect Decreased Anxiety (Myke Valentin RN) Status: Ongoing (Myke Valentin RN) Outcome: Patient will Verbalize a Sense of Control and/or Acceptance of the Situation (Myke Valentin RN) Status: Ongoing (Myke Valentin RN) Outcome: Patient will Identify and Utilize Support Person (Myke Valentin RN) Status: Ongoing (Myke Valentin RN) Knowledge Deficit State: Risk For (Myke Valentin RN) Related To: Labor and Delivery Process (Myke Valentin RN) Goal(s): Patient will Accurately Verbalize Understanding of Plan of Care and Treatment; Patient and Family will Accurately Verbalize Understanding of the Disease Process (Myke Valentin RN) Interventions: Assess Motivation and Willingness of Patient/Family to Learn; Assess Preferred Learning Mode: One to One Instruction, Reading, Videos, Group Discussion or Demonstration; Assess Barriers to Learning: Pain, Emotional State, Language Barrier, Cognitive Impairment, Visual or Hearing Deficits; Assess Patient and Family Knowledge of Disease Process, Medications and Treatment; Discuss Therapy and/or Treatment Options, Describe Rationale Behind Management, Therapy and Treatment Recommendations; Instruct Patient and Family on Signs and Symptoms to Report; Instruct Patient and Family on Medication Effects and Side Effects; Provide Appropriate and Timely Education Using Multiple Techniques; Provide Patient and Family with Support Group Information and Resources; Give Clear and Thorough Explanations and Demonstrations (Myke Valentin RN) Outcome: Patient and Family will Verbalize Understanding of Condition, Treatment and Signs and Symptoms to Report (Myke Valentin RN) Status: Ongoing (Myke Valentin RN) Outcome: Patient will Identify Perceived Learning Needs and Express Motivation to Learn (Myke Valentin RN) Status: Ongoing (Myke Valentin RN) Outcome: Patient will Verbalize Understanding of Desired Content, and/or Performs Desired Skill Prior to Discharge (Myke Valentin RN) Status: Ongoing (Myke Valentin RN) Infection State: Risk For (Myke Valentin RN) Related To: Invasive Procedures (Myke Valentin RN) Goal(s): The Patient will be Free of Infection, Vital Signs Stable and Lab Work within Normal Parameters (Myke Valentin RN) Interventions: Instruct and Reinforce Proper Handwashing, Hygiene, and Care Techniques to Patient and Family; Monitor Vital Signs; Monitor Patient for the Following Signs of Infection: Fever, Abdominal Tenderness, Unusual Discharge; Monitor Aminiotic Fluid, Urine and Lochia for Color and Odor; Observe Wounds, Incisions and Invasive Line Sites for Redness, Drainage and Edema; Assess IV Sites per Hospital Policy; Monitor Lab and Test Results and Notify Provider of Abnormal Findings; Assess Nutritional Status and Promote Good Nutrition (Myke Valentin RN) Outcome: Patient will Remain Free of Infection (Myke Valentin RN) Status: Ongoing (Myke Valentin RN) Outcome: Infection will be Recognized Early to Allow for Prompt Treatment (Myke Valentin RN) Status: Ongoing (Myke Valentin RN) Outcome: Patient will have Vital Signs Within Expected Range (Myke Valentin RN) Status: Ongoing (Myke Valentin RN) Injury State: Risk For (Myke Valentin RN) Related To: Labor and Delivery Process (Myke Valentin RN) Goal(s): Patient will Remain Free from Injury (Myke Valentin RN) Interventions: Monitoring as per Hospital Protocol; Assess Neurological Status; Perform Risk Assessment of Patients with Induction and ; Perform Fall Risk Assessment and Prevention per Hospital Protocol; Perform DVT Risk Assessment and Prophylaxis per Hospital Protocol; Ensure that Oxygen, Suction, and Resuscitation Medications and Equipment are Readily Available; Confirm Patient ID Prior to Procedure(s) and Medication Administration per Hospital Policy (Myke Valentin RN) Outcome: Successful Fall Risk Prevention (Myke Valentin RN) Status: Ongoing (Myke Valentin RN) Outcome: Patient will Deliver without Adverse Sequela (Myke Valentin RN) Status: Ongoing (Myke Valentin RN) Outcome: Patient's Neurological Status will Remain Stable (Myke Valentin RN) Status: Ongoing (Myke Valentin RN) Impaired Skin Integrity State: Risk For (Myke Valentin RN) Related To: Invasive Procedures (Myke Valentin RN) Goal(s): Patient will Maintain Optimal Skin Integrity, Free of Breakdown, Injury or Infection (Myke Valentin RN) Interventions: Complete Screening for Pressure Ulcer Risk and Initiate Protocol per Hospital Policy; Monitor Site of Skin Impairment for Color Changes, Redness, Swelling, Warmth, Pain or Other Signs of Infection; Encourage and Assist with Position Changes; Monitor Patient's Mobility Status; Provide Adequate Nutrition and Fluids; Teach Patient Appropriate Hygienic Care; Teach Patient/Family Skin Care Management (Myke Valentin RN) Outcome: Patient will not have Evidence of Injury Such as Skin Breakdown, Scrapes, Cuts, or Bruising (Myke Valentin RN) Status: Ongoing (Myke Valentin RN) Outcome: Patient will Report Any Altered Sensation or Pain at Site of Skin Impairment (Myke Valentin RN) Status: Ongoing (Myke Valentin RN) Outcome: Patients Incisions and Wounds will be without Signs or Symptoms of Infection (Myke Valentin RN) Status: Ongoing (Myke Valentin RN) Outcome: Patient will Demonstrate Understanding of Plan to Heal Skin and Prevent Reinjury and Verbalize Risk Factors (Myke Valentin RN) Status: Ongoing (Myke Valentin RN)
[2016-10-26 07:48] LABS: HEMATOCRIT 31.4 % (36.0-47.0); HEMOGLOBIN 10.6 g/dL (12.0-15.5); HGB HCT DIFFERENCE 0.4; MEAN CORPUSCULAR HEMOGLOBIN 29.2 pg (27.0-33.4); MEAN CORPUSCULAR HGB CONC 33.6 g/dL (32.0-36.0); MEAN CORPUSCULAR VOLUME 87 fl (80-97); RED BLOOD COUNT 3.62 10^6/uL (3.72-5.28); RED CELL DISTRIBUTION WIDTH 14.7 % (11.5-14.0); WHITE BLOOD COUNT 11.9 10^3/uL (4.0-10.5)
[2016-10-26] MEDS: PRENATAL VITAMIN W-O CA NO5/FE FUMARATE/FA CAPSULE PO SCH (09:39)
[2016-10-26] MEDS: DOCUSATE SODIUM 100 MG CAPSULE PO SCH ×2 (09:40→18:13)
[2016-10-26] MEDS: FERROUS SULFATE 325 MG TABLET PO SCH ×2 (09:40→18:13)
[2016-10-26] MEDS: SENNOSIDES/DOCUSATE 8.6-50 MG 1 EACH TABLET PO SCH (09:40)
--- NOTE | 2016-10-26 09:47 | PDOC PROGRESS REPORT ---
Subjective-OB Subjective: Post Delivery Day: 1 26 year old. Denies any needs at this time, states lochia is stable, pain well controlled, voiding without difficulty. Physical Exam (OB) Vital Signs: Temp Pulse Resp BP Pulse Ox 98.1 F 68 17 115/73 100 10/26/16 08:39 10/26/16 08:39 10/26/16 08:39 10/26/16 08:39 10/26/16 08:39 Intake & Output 10/25/16 10/26/16 10/27/16 06:59 06:59 06:59 Intake Total 600 Balance 600 Weight 71.75 kg - Lochia Lochia Amount: Scant < 10 ml Lochia Color: Rubra/Red - Abdomen Description: Tender, Soft Hernia Present: No Fundal Description: Firm, Midline Fundal Height: u/u - u/2 Objective-Diagnostic Laboratory: 10/26/16 07:12 10/25/16 09:27 10/25/16 10/25/16 10/25/16 09:27 09:27 09:27 WBC 9.4 RBC 3.83 Hgb 11.4 L Hct 32.7 L MCV 86 MCH 29.8 MCHC 34.8 RDW 14.3 H Plt Count 178 Seg Neutrophils % 72.5 Lymphocytes % 18.9 Monocytes % 7.6 Eosinophils % 0.5 Basophils % 0.5 Absolute Neutrophils 6.8 Absolute Lymphocytes 1.8 Absolute Monocytes 0.7 Absolute Eosinophils 0.1 Absolute Basophils 0.0 Sodium 134.3 L Potassium 4.0 Chloride 105 Carbon Dioxide 22 Anion Gap 7 BUN 9 Creatinine 0.51 L Est GFR ( Amer) > 60 Est GFR (Non-Af Amer) > 60 Glucose 76 Uric Acid 4.0 Calcium 9.0 Total Bilirubin 0.5 AST 17 ALT 23 Alkaline Phosphatase 161 H Total Protein 5.8 L Albumin 3.5 Blood Type A POSITIVE Antibody Screen NEGATIVE 10/26/16 07:12 WBC 11.9 H RBC 3.62 L Hgb 10.6 L Hct 31.4 L MCV 87 MCH 29.2 MCHC 33.6 RDW 14.7 H Plt Count 169 Seg Neutrophils % Lymphocytes % Monocytes % Eosinophils % Basophils % Absolute Neutrophils Absolute Lymphocytes Absolute Monocytes Absolute Eosinophils Absolute Basophils Sodium Potassium Chloride Carbon Dioxide Anion Gap BUN Creatinine Est GFR ( Amer) Est GFR (Non-Af Amer) Glucose Uric Acid Calcium Total Bilirubin AST ALT Alkaline Phosphatase Total Protein Albumin Blood Type Antibody Screen Assessment and Plan(PN) - Assessment and Plan (1) Delivery normal Is this a current diagnosis for this admission?: YesPlan: routine pp care anticipate d/c home tomorrow - Time Spent with Patient Time with patient: Less than 15 minutes Critical Time spent with patient: Less than 15 minutes Medications reviewed and adjusted accordingly: Yes - Disposition Anticipated Discharge: Home Within: within 24 hours
[2016-10-27] MEDS: IBUPROFEN 800 MG TABLET PO SCH ×2 (06:11→13:49)
[2016-10-27 08:20] VITALS: BP 113/67
[2016-10-27] MEDS: DOCUSATE SODIUM 100 MG CAPSULE PO SCH (10:04)
[2016-10-27] MEDS: SENNOSIDES/DOCUSATE 8.6-50 MG 1 EACH TABLET PO SCH (10:05)
[2016-10-27] MEDS: PRENATAL VITAMIN W-O CA NO5/FE FUMARATE/FA CAPSULE PO SCH (10:05)
[2016-10-27] MEDS: FERROUS SULFATE 325 MG TABLET PO SCH (10:05)
--- NOTE | 2016-10-27 14:42 | PDOC DISCHARGE SUMMARY ---
Final Diagnosis Discharge Date: 10/27/16 - Final Diagnosis (1) Vaginal delivery Is this a current diagnosis for this admission?: Yes Discharge Data - Discharge Medication Home Medications: Vit#96/Ferrous Fum/FA [ Tablet] 1 tab PO DAILY 03/01/14 Docusate Sodium [Colace 100 mg Capsule] 100 mg PO BID #60 capsule 10/27/16 Ferrous Sulfate [Feosol 325 mg Tablet] 325 mg PO BID #60 tablet 10/27/16 Ibuprofen [Motrin 800 mg Tablet] 800 mg PO Q8HP PRN #90 tablet 10/27/16 Reason(s) for Admission: Induction of Labor - Gestational Hypertension Procedures: Ultrasound Intrapartum Procedure(s): Spontaneous Vaginal Delivery Complication(s): Laceration-Vaginal Laceration-Degree: 2nd - Musella Data Baby 1 Female at 1 minute: 9 at 5 minutes: 9 Weight: 3715 kg Home with Mother: Yes Complications: No - Diagnosis Test Laboratory: Temp Pulse Resp BP Pulse Ox 98.2 F 64 20 113/67 100 10/27/16 07:13 10/27/16 07:13 10/27/16 07:13 10/27/16 07:13 10/27/16 07:13 10/25/16 10/25/16 10/26/16 08:48 09:27 07:12 RBC 3.83 3.62 L Hgb 11.4 L 10.6 L Hct 32.7 L 31.4 L Urine Opiates Screen NEGATIVE - Discharge information/Instructions Discharge Activity: Activity As Tolerated, Balance Activity w/Rest, No Lifting Over 10 Pounds, No Lifting/Push/Pulling, Pelvic Rest, Slowly Increase Activity, No tub bath Discharge Diet: Regular Disposition: HOME, SELF-CARE Follow up with: [facility] in: 1, Weeks - bp check Physical Exam (OB) Vital Signs: Temp Pulse Resp BP Pulse Ox 98.2 F 64 20 113/67 100 10/27/16 07:13 10/27/16 07:13 10/27/16 07:13 10/27/16 07:13 10/27/16 07:13 Intake & Output 10/26/16 10/27/16 10/28/16 06:59 06:59 06:59 Intake Total 600 400 Balance 600 400 Weight 71.75 kg - General General Appearance: Appears well, Alert In distress: None - PIH/Pre-Eclampsia Clonus: Negative Headache: Absent Epigastric Pain: No Visual Changes: No - Episiotomy/Laceration Site Condition: Well Approximated - Lochia Lochia Amount: Scant < 10 ml Lochia Color: Rubra/Red - Abdomen Description: Soft Hernia Present: No Fundal Description: Firm, Midline Fundal Height: u/u - u/2 - Respiratory Respiratory Status: No respiratory distress - Extremities Upper extremity: Normal inspection Lower extremities: Normal inspection - Neurological Cognition: Normal Orientation: AAOx4 - Psychological Associated symptoms: Normal affect - bonding well with baby supportive at bedside, Normal mood - bonding well with baby helpful family at bedside
== END 2016-10-27 14:51 | disposition home or self-care (01) | DRG 775 ==
LOC: LR 08:37 → 2S 17:03
PROVIDERS: ADMIT Student in an Organized Health Care Education/Training Program; ATTEND Student in an Organized Health Care Education/Training Program
PROC: 10E0XZZ Delivery of Products of Conception, External Approach (ICD-10-PCS; principal; 2016-10-25)
PROC: 0KQM0ZZ Repair Perineum Muscle, Open Approach (ICD-10-PCS; 2016-10-25)
PROC: 4A1HXCZ Monitoring of Products of Conception, Cardiac Rate, External Approach (ICD-10-PCS; 2016-10-25)
DX: O13.4 Gestational [pregnancy-induced] hypertension without significant proteinuria, complicating childbirth (principal); O99.824 Streptococcus B carrier state complicating childbirth; O70.1 Second degree perineal laceration during delivery; Z37.0 Single live birth; Z3A.40 40 weeks gestation of pregnancy
CPT/HCPCS: 36415; 80053; 80307; 81001; 83615; 84550; 85025; 85027; 86592; 86850; 86900; 86901; J2540; J2590; J3490